=== PATIENT | female | born 1955 | race Caucasian/White ===

== ENCOUNTER → 2017-07-20 | Outpatient (CLI) | payer BC ==
--- NOTE | 2017-07-20 13:15 | BD ---
EXAMINATION TYPE: Axial Bone Density DATE OF EXAM: 07/20/2017 COMPARISON: 03/12/2015 CLINICAL HISTORY: Osteoporosis screening. Postmenopausal female. Height: 62.2 IN Weight: 109 LBS RISK FACTORS HISTORY OF: History of Wrist Fracture: YES LEFT When: AGE 44 Surgery to Hip(right): YES When: AGE 61 Family History of Osteoporosis: MOTHER, (M)GRANDMOTHER, COUSINS Active: YES Diet low in dairy products/other sources of calcium: YES Postmenopausal woman: AGE 51 MEDICATIONS: Osteoporosis Medications: YES Which medication: Prolia BONIVA How Lon YEARS Additional Medications: VIT D, CYMBALTA, SIMVASTATIN, RESTASIS,PROLIA EXAM MEASUREMENTS: Bone mineral densitometry was performed using the [employer] System. Bone mineral density as measured about the Lumbar spine is: ----- L1-L4(G/cm2): 1.240 T Score Values are as follows: ----- L2: -1.0 ----- L3: 2.4 ----- L4: 1.5 ----- L1-L4: 0.5 Bone mineral density has: Increased 11.8% since study of: 03/12/2015 PT HAD RIGHT HIP REPLACEMENT AGE 61 Bone mineral density about the L hip (g/cm2): 0.854 T Score values are as follows: -----L Neck: -1.3 -----L Total: -1.0 Bone mineral density has: Increased 1.6% since study of: 03/12/2015 IMPRESSION: Osteopenia (T Score between -2.5 and -1). There is slightly increased risk of fracture and the patient may be considered for treatment. Re-Screen 2-5 years. NOTE: T-SCORE=SD OF THE YOUNG ADULT MEAN.
--- NOTE | 2017-07-20 13:40 | MM ---
Reason for exam: screening (asymptomatic). Last mammogram was performed 1 year and 7 months ago. History: Patient is postmenopausal and is nulliparous. Family history of breast cancer in maternal grandmother. Physical Findings: A clinical breast exam by your physician is recommended on an annual basis and results should be correlated with mammographic findings. MG Screening Mammo w CAD Bilateral CC and MLO view(s) were taken. Prior study comparison: December 25, 2015, bilateral MG screening mammo w CAD. December 19, 2012, bilateral digital screening mammo w/CAD. The breast tissue is extremely dense which could obscure a lesion on mammography. No suspicious abnormality. No significant changes when compared with prior studies. ASSESSMENT: Negative, BI-RAD 1 RECOMMENDATION: Routine screening mammogram of both breasts in 1 year.
== END | disposition home or self-care (01) ==
LOC: RADMAMWWP 09:43
PROVIDERS: ATTEND Internal Medicine Geriatric Medicine
DX: Z12.31 Encounter for screening mammogram for malignant neoplasm of breast (principal); M85.80 Other specified disorders of bone density and structure, unspecified site
CPT/HCPCS: 77067; 77080

== ENCOUNTER → 2018-12-30 | Outpatient (CLI) | payer BC ==
--- NOTE | 2019-01-01 14:25 | MM ---
Reason for exam: screening (asymptomatic). Last mammogram was performed 1 year and 5 months ago. History: Patient is postmenopausal and is nulliparous. Family history of breast cancer in maternal grandmother. Physical Findings: A clinical breast exam by your physician is recommended on an annual basis and results should be correlated with mammographic findings. MG 3D Screening Mammo W/Cad Bilateral CC and MLO view(s) were taken. Prior study comparison: July 20, 2017, bilateral MG screening mammo w CAD. December 25, 2015, bilateral MG screening mammo w CAD. The breast tissue is heterogeneously dense. This may lower the sensitivity of mammography. There is no discrete abnormality. No significant changes when compared with prior studies. ASSESSMENT: Negative, BI-RAD 1 RECOMMENDATION: Routine screening mammogram of both breasts in 1 year.
== END | disposition home or self-care (01) ==
LOC: RADMAMWWP 09:03
PROVIDERS: ATTEND Obstetrics & Gynecology
DX: Z12.31 Encounter for screening mammogram for malignant neoplasm of breast (principal)
CPT/HCPCS: 77063; 77067

== ENCOUNTER → 2019-07-20 | Outpatient (CLI) | payer MEDICARE | END | disposition home or self-care (01) | DX: Z53.9 Procedure and treatment not carried out, unspecified reason (principal) ==

== ENCOUNTER → 2019-07-20 | Outpatient (CLI) | payer MEDICARE ==
--- NOTE | 2019-07-20 15:27 | US ---
EXAMINATION TYPE: US pelvic complete DATE OF EXAM: 07/20/2019 COMPARISON: NONE CLINICAL HISTORY: 64-year-old female R10.2 PELVIC PAIN. Patient states she felt right pelvic pain dur ing a pelvic exam at her doctor's office 1 week ago, 1, 1, history of D&C. TECHNIQUE: Transabdominal sonographic images of the pelvis were acquired. Transvaginal sonographic i mages were medically necessary to better assess the following anatomy: endometrium and ovaries Date of LMP: 13 years ago FINDINGS: EXAM MEASUREMENTS: Uterus: 5.9 x 3.4 x 3.9 cm Endometrial Stripe: A portion of the fundus may measure up to 9 mm. Right Ovary: not seen Left Ovary: not seen 1. Uterus: 2.8 x 1.7 x 3.1cm isoechoic heterogeneous vascular area along the posterior margin of the endometrial stripe, possible endometrial mass vs. Myometrial mass distorting endometrium 2. Endometrium: limited visualization, may measure up to 9 mm. 3. Right Ovary: not seen due to overlying bowel 4. Left Ovary: not seen due to overlying bowel 5. Bilateral Adnexa: wnl 6. Posterior cul-de-sac: wnl IMPRESSION: 1. Possible endometrial or adjacent posterior myometrial mass measuring 2.8 cm difficult to exclude b ased on these images. Female pelvic MRI recommended to further evaluate. 2. Neither ovary could be visualized.
[2019-07-20 23:36] LABS: Gliadin AB IgA, Deaminated NEGATIVE (NEGATIVE); Gliadin AB IgA, Unit 0.9 U/mL; Gliadin AB IgG, Deaminated NEGATIVE (NEGATIVE)
== END | disposition home or self-care (01) ==
LOC: LABWHC1 14:19
PROVIDERS: ATTEND Internal Medicine Gastroenterology
DX: R63.4 Abnormal weight loss (principal)
CPT/HCPCS: 36415; 76830; 76856; 83516

== ENCOUNTER → 2019-07-25 | Outpatient (CLI) | payer MEDICARE ==
[2019-07-25 14:16] LABS: African American GFR (CKD) >90 (>60 ml/min/1.73 sqM); Blood Urea Nitrogen 13 mg/dL (7-17); Non-African American GFR(CKD) >90 (>60 ml/min/1.73 sqM)
--- NOTE | 2019-07-25 15:45 | CT ---
EXAMINATION TYPE: CT abdomen pelvis w con DATE OF EXAM: 07/25/2019 HISTORY: weight loss, abnormal US of the uterus CT DLP: 287.4mGycm Automated Exposure Control for Dose Reduction was Utilized. CONTRAST: CT scan of the abdomen and pelvis is performed with IV Contrast, patient injected with 100 mL of Isov ue 300. COMPARISON: None. FINDINGS: LUNG BASES: No significant abnormality is appreciated. LIVER/GB: Subcentimeter hypodense lesion right hepatic dome too small to further characterize axial i mage 10 presumed benign. PANCREAS: No significant abnormality is seen. SPLEEN: No significant abnormality is seen. ADRENALS: No significant abnormality is seen. KIDNEYS: No significant abnormality is seen. BOWEL: Suboptimal evaluation as patient has virtually no intra-abdominal fat and the oral contrast do es not reach the level of terminal ileum. Moderate diffuse colonic fecal prominence. Bowel loops pres acral region of uncertain etiology likely reflects wandering cecum seen best coronal image 49. No ramon picious small or large bowel dilatation. UTERUS/ADNEXA: No gross abnormality seen. LYMPH NODES: No greater than 1cm abdominal or pelvic lymph nodes are appreciated. OSSEOUS STRUCTURES: Metallic hardware from right hip arthroplasty causes streak artifact limiting mega luation of pelvic structures. Underlying levoconvex scoliosis centered at L4-L5 level. [id number] morales disc space narrowing L4-L5 level. Facet arthropathy lower lumbar levels. OTHER: No significant additional abnormality is seen. IMPRESSION: Suboptimal study due to virtually no intra-abdominal fat. Fairly moderate to severe diffu se colonic fecal stasis. No bowel obstruction. Wandering cecum suspected.
== END | disposition home or self-care (01) ==
LOC: RADCTMAIN 13:07
PROVIDERS: ATTEND Internal Medicine Gastroenterology
DX: K90.9 Intestinal malabsorption, unspecified (principal); Z01.89 Encounter for other specified special examinations
CPT/HCPCS: 82565; 84520; 74177; 36415; Q9967

== ENCOUNTER → 2019-08-21 | Outpatient (CLI) | payer MEDICARE ==
--- NOTE | 2019-08-22 02:55 | MR ---
EXAMINATION TYPE: MR pelvis wo/w con DATE OF EXAM: 08/21/2019 COMPARISON: HISTORY: Uterine Mass CONTRAST: Standard multiplanar, multisequence MRI departmental protocol utilizing 4 mL intravenous Gadavist elsa olinium contrast. Uterus is retroverted and best seen on the T1 sagittal fat sat contrast images 22. Endometrium measur es 5 mm. Uterus measures 3.5 x 2.5 cm. Adjacent to the uterine fundus there is a rounded mixed signal mass extending to the right side. This measures 3.7 cm and shows enhancement. There is fluid in the pelvis that appears to be within multiple distended loops of bowel. The bladder distends smoothly. Th ere is metal artifact from right hip prosthesis. IMPRESSION: Small retroverted uterus with normal endometrium. Rounded mass contiguous with the uterine fundus on the right side shows enhancement. The appearances nonspecific. I would consider uterine fibroid as we ll as pathologically enlarged right ovary.
== END | disposition home or self-care (01) ==
LOC: RADMRIMAIN 18:36
PROVIDERS: ATTEND Obstetrics & Gynecology
DX: N85.4 Malposition of uterus (principal); N85.8 Other specified noninflammatory disorders of uterus
CPT/HCPCS: 72197; A9585

== ENCOUNTER → 2019-09-14 | Outpatient (CLI) | payer MEDICARE ==
--- NOTE | 2019-09-14 14:20 | XR ---
EXAMINATION TYPE: XR chest 2V DATE OF EXAM: 09/14/2019 COMPARISON: NONE TECHNIQUE: PA and lateral views submitted. HISTORY: Preop FINDINGS: The lungs are clear and there is no pneumothorax, pleural effusion, or focal pneumonia. Heart size normal. No overt failure. Postsurgical change left shoulder. Hyperinflation suggests COPD. IMPRESSION: 1. No acute process.
== END | disposition home or self-care (01) ==
LOC: RADXRMAIN 13:52
PROVIDERS: ATTEND Obstetrics & Gynecology
DX: R19.00 Intra-abdominal and pelvic swelling, mass and lump, unspecified site (principal)
CPT/HCPCS: 71046

== ENCOUNTER → 2020-01-15 | Outpatient (CLI) | payer MEDICARE | END | disposition home or self-care (01) | LOC: LABWHC1 14:06 | PROVIDERS: ATTEND Nurse Practitioner Family | DX: K59.00 Constipation, unspecified (principal); R63.4 Abnormal weight loss; R19.00 Intra-abdominal and pelvic swelling, mass and lump, unspecified site; R41.3 Other amnesia; Z77.018 Contact with and (suspected) exposure to other hazardous metals; Z77.098 Contact with and (suspected) exposure to other hazardous, chiefly nonmedicinal, chemicals; Z77.120 Contact with and (suspected) exposure to mold (toxic) | CPT/HCPCS: 36415; 86160 ==

== ENCOUNTER → 2020-01-18 | Outpatient (CLI) | payer MEDICARE | END | disposition home or self-care (01) | LOC: LABWHC1 11:14 | PROVIDERS: ATTEND Nurse Practitioner Family | DX: K59.00 Constipation, unspecified (principal); R14.0 Abdominal distension (gaseous); R41.3 Other amnesia; Z77.018 Contact with and (suspected) exposure to other hazardous metals; Z77.098 Contact with and (suspected) exposure to other hazardous, chiefly nonmedicinal, chemicals; R63.4 Abnormal weight loss | CPT/HCPCS: 36415; 83704 ==

== ENCOUNTER → 2020-02-27 | Outpatient (CLI) | payer MEDICARE ==
--- NOTE | 2020-02-27 15:15 | BD ---
EXAMINATION TYPE: Axial Bone Density DATE OF EXAM: 02/27/2020 COMPARISON: 07.20.2017 CLINICAL HISTORY: 64 YR OLD FEMALE....ICD-10 CODE: M89.9 DISORDER OF BONE Height: 62 Weight: 90 FRAX RISK QUESTIONS: Family History (Parent hip fracture): YES History of Fracture in Adulthood: YES Secondary Osteoporosis: YES 4. Malnutrition: UNDERWEIGHT RISK FACTORS HISTORY OF: Spine Fracture: NO, ONLY PAIN INSERT History of Wrist Fracture: LT WRIST Surgery to TOTAL HIP RT SIDE 2017, CHEMO PAIN INSERT IN LUMBAR SPINE 1984 Family History of Osteoporosis: YES, MOTHER AND GRANDMOTHER WITH HIP FXS Diet low in dairy products/other sources of calcium: YES Postmenopausal woman: YES, AT AGE 51 Hyperparathyroidism: NO Adrenal Insufficiency: YES, ADRENAL STRESS, HIGH CORTISOL LEVEL MEDICATIONS: Osteoporosis Medications: PROLIA X2 YEARLY....8-10 YRS, OSTEOPOROSIS MEDS FOR OVER 20 YRS Additional Medications: DULOXETINE, STATIN FOR CHOLESTEROL, VIT D, K FORCE, MULTIVITAMIN Additional History: ADRENAL INSUFFICIENCY, CHOLESTEROL EXAM MEASUREMENTS: Bone mineral densitometry was performed using the [employer] System. Bone mineral density as measured about the Lumbar spine is: ----- L1-L4(G/cm2): 1.229 T Score Values are as follows: ----- L1: -2.4 ----- L2: -1.8 ----- L3: 0.9 ----- L4: 4.9 ----- L1-L4: 0.4 Bone mineral density has: Increased 3.1% SINCE: 07.20.2017 Bone mineral density about the L hip (g/cm2): 0.948 T Score values are as follows: -----L Neck: -0.9 -----L Total: -0.5 Bone mineral density has: Increased 7.1 % SINCE 07.20.2017 FRAX%s: THERE IS A 19.1% CHANCE FOR A MAJOR OSTEOPOROTIC FX AND 1.0% FOR HIP......PROBABILITY FOR FX IN 10 YRS TIME IMPRESSION: Normal (Values between +1 and -1 indicate normal bone mass). Consider repeating this study in 5 year s or sooner if there is some new clinical indication. NOTE: T-SCORE=SD OF THE YOUNG ADULT MEAN.
== END | disposition home or self-care (01) ==
LOC: RADBDWWP 13:15
PROVIDERS: ATTEND Obstetrics & Gynecology
DX: M85.9 Disorder of bone density and structure, unspecified (principal)
CPT/HCPCS: 77080

== ENCOUNTER → 2022-04-30 | Outpatient (CLI) | payer MEDICARE ==
--- NOTE | 2022-04-30 16:00 | BD ---
EXAMINATION TYPE: Axial Bone Density DATE OF EXAM: 04/30/2022 CLINICAL HISTORY: 67 years old Female. ICD-10 CODE: M81.0 AGE RELATED OSTEOPOROSIS Height: 62in Weight: 88lb FRAX RISK QUESTIONS: History of Fracture in Adulthood: yes Secondary Osteoporosis: RISK FACTORS HISTORY OF: Surgery to Spine/Hip(right/left)/Wrist (right/left): yes, RTHA When: 2017 Family History of Osteoporosis: Active: Diet low in dairy products/other sources of calcium: YES Postmenopausal woman: YES Poor Health: fair Adrenal Insufficiency: unknown MEDICATIONS: Osteoporosis Medications: Which medication: Prolia How Lon-15 years Additional Medications: cholesterol med, vitamin d Additional History: EXAM MEASUREMENTS: Bone mineral densitometry was performed using the [employer] System. Bone mineral density as measured about the Lumbar spine is: ----- L1-L4(G/cm2): 1.404 T Score Values are as follows: ----- L1: -1.6 ----- L2: 0.9 ----- L3: 5.4 ----- L4: 2.3 ----- L1-L4: 1.9 Z Score Values are as follows: ----- L1: 0.9 ----- L2: 3.4 ----- L3: 7.9 ----- L4: 4.8 ----- L1-L4: 4.3 Bone mineral density has: Increased 14.2% since study of: 02-27-20 Bone mineral density about the L hip (g/cm2): 0.889 T Score values are as follows: -----L Neck: -0.8 -----L Total: -0.9 Z Score values are as follows: -----L Neck: 1.4 -----L Total: 1.0 Bone mineral density has: Decreased -6.2% since study of: 02-27-20 FRAX%s: The graph provided illustrates a 17.1% chance for a major osteoporotic fx and a 1.4% chance f or the hips probability for fx in 10 years time. IMPRESSION: Normal (Values between +1 and -1 indicate normal bone mass). Consider repeating this study in 5 year s or sooner if there is some new clinical indication. NOTE: T-SCORE=SD OF THE YOUNG ADULT MEAN.
--- NOTE | 2022-05-03 08:00 | MM ---
Reason for Exam: Screening (asymptomatic). Last mammogram was performed 3 year(s) and 4 month(s) ago. Patient History: Menarche at age 13. Patient has no children. Postmenopausal. Maternal grandmother had breast cancer. Risk Values: Muna 5 year model risk: 1.7%. NCI Lifetime model risk: 5.6%. Prior Study Comparison: 12/25/2015 Bilateral Screening Mammogram, [facility]. 07/20/2017 Bilateral Screening Mammogram, [facility]. 12/30/2018 Bilateral Screening Mammogram, [facility]. Tissue Density: The breast tissue is extremely dense which could obscure a lesion on mammography. Findings: Analyzed By CAD. Asymmetric nodular density 12:00 position right breast 3 cm from the nipple. Additional asymmetric nodular density lower right breast. Additional views are recommended. If nodularity persists consider ultrasound as well. Overall Assessment: Incomplete: need additional imaging evaluation, BI-RAD 0 Management: Diagnostic Mammogram of the right breast. A clinical breast exam by your physician is recommended on an annual basis and results should be correlated with mammographic findings. Electronically signed and approved by: Odell Pierre M.D. Radiologis
== END | disposition home or self-care (01) ==
LOC: RADMAMWWP 15:07
PROVIDERS: ATTEND Internal Medicine Geriatric Medicine
DX: Z12.31 Encounter for screening mammogram for malignant neoplasm of breast (principal); M81.0 Age-related osteoporosis without current pathological fracture; M85.88 Other specified disorders of bone density and structure, other site; Z78.0 Asymptomatic menopausal state; Z80.3 Family history of malignant neoplasm of breast
CPT/HCPCS: 77063; 77067; 77080

== ENCOUNTER → 2022-05-05 | Outpatient (CLI) | payer MEDICARE ==
--- NOTE | 2022-05-05 14:15 | MM ---
Reason for Exam: Additional evaluation requested from abnormal screening. Last screening mammogram was performed less than 1 month ago. Patient History: Menarche at age 13. Patient has no children. Postmenopausal. Maternal grandmother had breast cancer. Risk Values: Muna 5 year model risk: 1.7%. NCI Lifetime model risk: 5.6%. Prior Study Comparison: 12/19/2012 Bilateral Screening Mammogram, [facility]. 12/25/2015 Bilateral Screening Mammogram, [facility]. 07/20/2017 Bilateral Screening Mammogram, [facility]. 12/30/2018 Bilateral Screening Mammogram, [facility]. 04/30/2022 Bilateral MG 3D screening mammo w/cad, [facility]. Tissue Density: Right: The breast tissue is extremely dense which could obscure a lesion on mammography. Findings: Analyzed By CAD. No persistent distortion or focal asymmetry No suspicious groups of microcalcifications, spiculated or lobular masses, architectural distortion or other secondary signs of malignancy are mammographically apparent. Overall Assessment: Probably benign, BI-RAD 3 Management: Diagnostic Mammogram of the right breast in 6 months. A negative mammogram report should not preclude additional follow up of suspicious palpable abnormalities. Patient should continue monthly self breast exam. A clinical breast exam by your physician is recommended on an annual basis and results should be correlated with mammographic findings. Electronically signed and approved by: Travis Hutson D.O. Radiologis
== END | disposition home or self-care (01) ==
LOC: RADMAMWWP 13:14
PROVIDERS: ATTEND Internal Medicine Geriatric Medicine
DX: R92.8 Other abnormal and inconclusive findings on diagnostic imaging of breast (principal); Z80.3 Family history of malignant neoplasm of breast; Z78.0 Asymptomatic menopausal state
CPT/HCPCS: 77065; G0279; 77061

== ENCOUNTER → 2022-12-16 | Outpatient (CLI) | payer MEDICARE ==
--- NOTE | 2022-12-16 17:02 | US ---
EXAMINATION TYPE: US pelvic complete DATE OF EXAM: 12/16/2022 COMPARISON: OB ultrasound 07/20/2019, MR pelvis 08/21/2019 CLINICAL INDICATION: Female, 67 years old with history of D25.9 LEIOMYOMA OF UTERUS, UNSPECIFIED; fib roid TECHNIQUE: Transvaginal (TV) and Transabdominal (TA) . Transabdominal sonographic images of the pel vis were acquired. Transvaginal sonographic images were medically necessary to better assess the fol lowing anatomy: Ovaries Date of LMP: 16 years ago EXAM MEASUREMENTS: Uterus: 4.0x3.1x3.4 cm Endometrial Stripe: 0.2 cm Right Ovary: 1.7x0.6x1.2 cm Left Ovary: 1.0x1.1x0.7 cm 1. Uterus: Anteverted fibroid again seen: 2.5x1.4x2.5cm 2. Endometrium: free fluid noted 3. Right Ovary: wnl, atrophic 4. Left Ovary: wnl, atrophic 5. Bilateral Adnexa: Obscured by overlying bowel gas 6. Posterior cul-de-sac: wnl exam largely limited by bowel gas and patient anatomy Anteverted uterus with intramural posterior fundal fibroid again identified. Small amount of free flu id within the endometrium. Both ovaries are atrophic. IMPRESSION: Limited examination due to overlying bowel gas and patient anatomy. 1. No ultrasound evidence for acute process. 2. Stable fibroid changes of the uterus. 3. Simple appearing fluid within the endometrium. 4. Atrophic appearance of both ovaries.
== END | disposition home or self-care (01) ==
LOC: RADUSWWP 15:57
PROVIDERS: ATTEND Obstetrics & Gynecology
DX: D25.1 Intramural leiomyoma of uterus (principal); N83.311 Acquired atrophy of right ovary; N83.312 Acquired atrophy of left ovary
CPT/HCPCS: 76830; 76856

== ENCOUNTER → 2022-12-23 | Outpatient (CLI) | payer MEDICARE ==
--- NOTE | 2022-12-23 08:45 | MM ---
Reason for Exam: Follow-up at short interval from prior study. Last screening mammogram was performed 8 month(s) ago. Patient History: Menarche at age 13. Patient has no children. Postmenopausal. Maternal grandmother had breast cancer. Risk Values: Muna 5 year model risk: 1.7%. NCI Lifetime model risk: 5.6%. Prior Study Comparison: 12/25/2015 Bilateral Screening Mammogram, [facility]. 07/20/2017 Bilateral Screening Mammogram, [facility]. 12/30/2018 Bilateral Screening Mammogram, [facility]. 04/30/2022 Bilateral MG 3D screening mammo w/cad, [facility]. 05/05/2022 Right MG 3D work up w/cad RT, [facility]. Tissue Density: Right: The breast tissue is extremely dense which could obscure a lesion on mammography. Findings: Analyzed By CAD. Under compression the suspicious densities identified by screening are not persistent. With these new images, a group of calcifications are identified. Magnification views confirm calcifications at the 12 to 1:00 position right breast. These appear new from prior exams. These appear grouped, stereotactic core biopsy recommended. Overall Assessment: Suspicious, BI-RAD 4 Management: Stereotactic Core Biopsy of the right breast. A negative mammogram report should not preclude additional follow up of suspicious palpable abnormalities. Patient should continue monthly self breast exam. A clinical breast exam by your physician is recommended on an annual basis and results should be correlated with mammographic findings. Electronically signed and approved by: Travis Hutson D.O. Radiologis
== END | disposition home or self-care (01) ==
LOC: RADMAMWWP 07:51
PROVIDERS: ATTEND Obstetrics & Gynecology
DX: R92.341 Mammographic extreme density, right breast (principal); R92.8 Other abnormal and inconclusive findings on diagnostic imaging of breast; Z78.0 Asymptomatic menopausal state; Z80.3 Family history of malignant neoplasm of breast
CPT/HCPCS: 77065; G0279; 77061

== ENCOUNTER → 2023-01-07 | Day surgery (SDC) | payer MEDICARE ==
--- NOTE | 2023-01-10 11:30 | MM ---
Date of Procedure: 01/07/23 Preoperative Diagnosis: Microcalcifications of concern right breast Postoperative Diagnosis: Same Procedure(s) Performed: Right breast stereotactic core biopsy Anesthesia: local Surgeon: Masha Srivastava Pathology: other (Right breast tissue with microcalcifications of concern noted in specimen) Condition: stable Disposition: same day (Right breast tissue with microcalcifications of concern noted and specimen) Indications for Procedure: Microcalcifications of concern right breast Operative Findings: Radiographic specimen reveals microcalcifications of concern Description of Procedure: The patient is a 67-year-old female who was noted to have microcalcifications of concern in her right breast. A stereotactic core biopsy was recommended. The risks and benefits of the procedure were discussed with the patient and she wished to proceed. The patient was taken to the stereotactic core biopsy room. She was positioned in an upright chair. A manager pe film was obtained. A CC from above approach was utilized. The area of concern was identified. The area was targeted. A 2-D stereo approach was utilized. The breast was prepped. 16 mL of 1% lidocaine was used to anesthetize the area of concern. A 9-gauge vacuum-assisted core rotating biopsy needle was driven to the correct coordinates. A prefire film was obtained. Secondary to the thinness of the breast the needle was withdrawn from the breast and fired. It was then driven again into the breast parenchyma to the target. A post-fire radiograph was obtained. The needle was noted to be in the correct location. 13 core biopsy specimens were obtained. Radiograph of the specimen revealed the calcifications of concern have been adequately sampled. A secure marked top. Clip was placed. The patient tolerated the procedure in stable condition. The patient will follow-up with Dr. Barrios next week. The specimen was sent to pathology. [facility]
== END ==
LOC: RADMAMWWP 07:18
PROVIDERS: ATTEND Surgery
DX: R92.0 Mammographic microcalcification found on diagnostic imaging of breast (principal); R92.8 Other abnormal and inconclusive findings on diagnostic imaging of breast
CPT/HCPCS: 88305; 19081; A4648

== ENCOUNTER → 2023-01-07 | Outpatient (CLI) | payer MEDICARE ==
[2023-01-07 08:03] VITALS: BP 114/76; PULSE 86; RESP 18; TEMP 97.9
--- NOTE | 2023-01-07 08:04 | P.GSHP ---
History of Present Illness H&P Date: 01/07/23 Chief Complaint: Abnormal right breast mammogram Micki is a 67-year-old white female seen in consultation for Dr. Joseph regarding an abnormal right breast mammogram. [place] [id number] after which it was recommended she have a diagnostic mammogram of the [place]. [place] [id number]. It was recommended she have a repeat right breast mammogram in 6 months, which was performed on [id number]. This revealed a group of calcifications at the 12:00 to 1 o'clock position of the right breast. These were considered new and stereotactic core biopsy was recommended. She is not complaining of any lumps masses or nodules of concern in either breast. She hasn't had any recent trauma or infection in the breast. She has not had any surgery in her breast. Caffeine: 3 cups/day nicotine: none chocolate: several times a week BCP:6 months when a teen ages hormones: none Family history: maternal grandmother: breast cancer father: colon cancer paternal grandfather: colon cancer brother: adrenal cancer Hormonal history: Menarche: 13 G1A1 menopause: 51 Surgical history: shoulder: bilateral not replacement arthrscopic bilateral knees thumb joint replacement Medical history: depression high cholesterol Social History: nicotine: none alcohol: weekly drugs: none - Constitutional Constitutional: Denies chills, Denies fever - EENT Eyes: denies blurred vision, denies pain Ears: bilateral: tinnitus, deny: decreased hearing Ears, nose, mouth and throat: Denies headache, Denies sore throat - Breasts Breasts: bilateral: as per HPI - Cardiovascular Cardiovascular: Denies chest pain, Denies shortness of breath - Respiratory Respiratory: Denies cough, Denies 7 - Gastrointestinal Gastrointestinal: Reports constipation, Denies abdominal pain, Denies diarrhea, Denies nausea, Denies vomiting - Genitourinary (Female) Genitourinary: Denies dysuria, Denies hematuria - Menstruation Menstruation: Reports postmenopausal - Musculoskeletal Musculoskeletal: Reports as per HPI - Integumentary Integumentary: Denies pruritus, Denies rash - Neurological Neurological: Denies numbness, Denies weakness - Psychiatric Psychiatric: Reports depression - Endocrine Endocrine: Denies fatigue, Denies weight change - Hematologic/Lymphatic Comment: none - Allergic/Immunologic Allergic/Immunologic: Reports seasonal allergies Past Medical History Past Medical History: GERD/Reflux, Hyperlipidemia, Osteoarthritis (OA) Additional Past Medical History / Comment(s): ARTHRITIS/BACK PAIN/OSTEOPOROSIS History of Any Multi-Drug Resistant Organisms: None Reported Past Surgical History: Back Surgery Additional Past Surgical History / Comment(s): ARTHROSCOPIC RT X2 SHOULDER AND BILAT KNEE/LT SHOULDER SURG/RT WRIST LIGAMENT REPAIR Past Anesthesia/Blood Transfusion Reactions: No Reported Reaction, Motion Sickness Past Psychological History: Depression Additional Psychological History / Comment(s): PREMENSTRAL DYSPHORIC D/O Smoking Status: Former smoker Past Alcohol Use History: Occasional Additional Past Alcohol Use History / Comment(s): quit smoking 35 years Past Drug Use History: None Reported Medications and Allergies Home Medications Medication Instructions Recorded Confirmed Type cycloSPORINE 0.05% OPHTH SOLN 1 applicator BOTH EYES BID 06/06/13 12/27/22 History [Restasis 0.05% Ophth Soln] DULoxetine HCL [Cymbalta] 90 mg PO DAILY 07/13/13 12/27/22 History Memantine HCl [Memantine HCl ER] 14 mg PO DAILY 12/27/22 12/27/22 History Rosuvastatin [Crestor] 20 mg PO HS 12/27/22 12/27/22 History lamoTRIgine [LaMICtal] 100 mg PO DAILY 12/27/22 12/27/22 History Allergies Allergy/AdvReac Type Severity Reaction Status Date / Time hydrocodone Allergy Rash/Hives Verified 12/27/22 13:16 Surgical - Exam - General no distress - Eyes normal ocular movement - Neck trachea midline - Respiratory normal respiratory effort, clear to auscultation - Cardiovascular Heart Sounds: normal: S1, S2 - Abdomen Abdomen: soft, non tender, no guarding, no rigid, no rebound - Integumentary normal turgor - Neurologic no disoriented, no combative - Musculoskeletal normal gait - Psychiatric oriented to time, oriented to person, oriented to place, speech is normal, memory intact Breast Exam: BRA; 34B Inspection: bilateral grade 2 ptosis palpation: Right breast: Multi-positional exam no dominant masses or nodules of concern, thin breast Right axilla: No adenopathy of concern Left breast: Multi-positional exam no dominant masses or nodules of concern, then the breast Left axilla: No adenopathy of concern Results Mammogram reviewed with Dr. Morgan, microcalcifications of concern right breast upper mid breast Assessment and Plan Assessment: Impression: Radiographic abnormality/microcalcifications of concern right breast upper outer to mid breast Depression Plan: Stereotactic core biopsy right breast Risks and benefits of the procedure were discussed with the patient. Risks include but are not limited to bleeding, infection, reaction to the anesthetic. The patient understands that if the specimen pathology were discordant and further tissue acquisition may be necessary. The patient also understands that her breast) and may not be able to do a stereo biopsy in which case a needle localization and excisional most likely be recommended. She wishes to proceed. CC: Dr. Joseph
--- NOTE | 2023-01-07 08:45 | P.PCN ---
Date of Procedure: 01/07/23 Preoperative Diagnosis: Microcalcifications of concern right breast Postoperative Diagnosis: Same Procedure(s) Performed: Right breast stereotactic core biopsy Anesthesia: local Surgeon: Masha Srivastava Pathology: other (Right breast tissue with microcalcifications of concern noted in specimen) Condition: stable Disposition: same day (Right breast tissue with microcalcifications of concern noted and specimen) Indications for Procedure: Microcalcifications of concern right breast Operative Findings: Radiographic specimen reveals microcalcifications of concern Description of Procedure: The patient is a 67-year-old female who was noted to have microcalcifications of concern in her right breast. A stereotactic core biopsy was recommended. The risks and benefits of the procedure were discussed with the patient and she wished to proceed. The patient was taken to the stereotactic core biopsy room. She was positioned in an upright chair. A senior electronics engineer film was obtained. A CC from above approach was utilized. The area of concern was identified. The area was targeted. A 2-D stereo approach was utilized. The breast was prepped. 16 mL of 1% lidocaine was used to anesthetize the area of concern. A 9-gauge vacuum-assisted core rotating biopsy needle was driven to the correct coordinates. A prefire film was obtained. Secondary to the thinness of the breast the needle was withdrawn from the breast and fired. It was then driven again into the breast parenchyma to the target. A post-fire radiograph was obtained. The needle was noted to be in the correct location. 13 core biopsy specimens were obtained. Radiograph of the specimen revealed the calcifications of concern have been adequately sampled. A secure marked top. Clip was placed. The patient tolerated the procedure in stable condition. The patient will follow-up with Dr. Barrios next week. The specimen was sent to pathology.
== END ==
LOC: WWCWWP 07:35
PROVIDERS: ATTEND Surgery
DX: K21.9 Gastro-esophageal reflux disease without esophagitis (principal); E78.00 Pure hypercholesterolemia, unspecified; F32.A Depression, unspecified; M81.0 Age-related osteoporosis without current pathological fracture; M19.90 Unspecified osteoarthritis, unspecified site; Z80.3 Family history of malignant neoplasm of breast; Z87.891 Personal history of nicotine dependence; Z88.5 Allergy status to narcotic agent

== ENCOUNTER → 2023-01-19 | Outpatient (CLI) | payer MEDICARE ==
--- NOTE | 2023-01-19 15:04 | P.PN ---
Subjective Progress Note Date: 01/19/23 Principal diagnosis: fibrocystic breast Micki is a 67 year old female status post stero biopsy of a lesion in her right breast on 01-07-23. Her pathology was benign concordant. The patient did develop ecchymosis following the procedure. This is resolving at the present ti me. Objective - Integumentary Integumentary Comment(s): Ecchymosis at biopsy site, this is resolving, no evidence of infection or he matoma Assessment and Plan Assessment: Impression: benign concordant biopsy Plan: Repeat right breast mammogram in 6 months with examination at that time CC: Dr. Joseph
== END ==
LOC: WWCWWP 14:13
PROVIDERS: ATTEND Surgery
DX: N60.11 Diffuse cystic mastopathy of right breast (principal); R58 Hemorrhage, not elsewhere classified; Z88.5 Allergy status to narcotic agent; Z87.891 Personal history of nicotine dependence

== ENCOUNTER → 2023-07-11 | Outpatient (CLI) | payer MEDICARE ==
--- NOTE | 2023-07-11 15:20 | MM ---
Reason for Exam: Follow-up at short interval from prior study. Last mammogram was performed 1 year(s) and 3 month(s) ago. Patient History: Menarche at age 13. Patient has no children. Postmenopausal. 01/07/2023, Benign MG stereo VAD BX RT on the right side. Maternal grandmother had breast cancer. Risk Values: Muna 5 year model risk: 2.1%. NCI Lifetime model risk: 6.3%. Prior Study Comparison: 04/30/2022 Bilateral MG 3D screening mammo w/cad, [facility]. 05/05/2022 Right MG 3D work up w/cad RT, [facility]. 12/23/2022 Right MG 3D diag mammo w/cad RT, [facility]. Tissue Density: Right: The breasts are extremely dense, which lowers the sensitivity of mammography. Findings: Analyzed By CAD. Extensive bilateral areas of asymmetric density which appears to have fluctuated from prior. Further ultrasound evaluation of the right breast. Microclip right breast from recent biopsy 6 months ago. Overall Assessment: Incomplete: need additional imaging evaluation, BI-RAD 0 Management: Diagnostic Breast Ultrasound of the right breast. Electronically signed and approved by: Marie Dubon M.D. Radiologist
--- NOTE | 2023-07-11 16:09 | USB ---
Reason for Exam: Additional evaluation requested from prior study. Patient History: Menarche at age 13. Patient has no children. Postmenopausal. 01/07/2023, Benign MG stereo VAD BX RT on the right side. Maternal grandmother had breast cancer. Risk Values: Muna 5 year model risk: 2.1%. NCI Lifetime model risk: 6.3%. Technique: Method: Whole Breast Handheld. Prior Study Comparison: 04/30/2022 Bilateral MG 3D screening mammo w/cad, [facility]. 05/05/2022 Right MG 3D work up w/cad RT, [facility]. 12/23/2022 Right MG 3D diag mammo w/cad RT, [facility]. Findings: The whole breast of the right breast, the axilla of the right breast and the retroareolar of the right breast were scanned. A complete US of all four quadrants of the breast, axilla, and retro-areolar region were reviewed. No solid or cystic masses are identified. No axillary lymphadenopathy. Overall Assessment: Probably benign, BI-RAD 3 Management: Diagnostic Mammogram of both breasts in 6 months. A clinical breast exam by your physician is recommended on an annual basis and results should be correlated with mammographic findings. This exam should not preclude additional follow-up of suspicious palpable abnormalities. Results were given to the patient verbally at the time of exam. Electronically signed and approved by: Marie Dubon M.D. Radiologist
--- NOTE | 2023-07-12 08:50 | MM ---
Reason for Exam: Follow-up at short interval from prior study. Last mammogram was performed 1 year(s) and 3 month(s) ago. Patient History: Menarche at age 13. Patient has no children. Postmenopausal. 01/07/2023, Benign MG stereo VAD BX RT on the right side. Maternal grandmother had breast cancer. Risk Values: Muna 5 year model risk: 2.1%. NCI Lifetime model risk: 6.3%. Prior Study Comparison: 04/30/2022 Bilateral MG 3D screening mammo w/cad, [facility]. 05/05/2022 Right MG 3D work up w/cad RT, [facility]. 12/23/2022 Right MG 3D diag mammo w/cad RT, [facility]. Tissue Density: The breasts are extremely dense, which lowers the sensitivity of mammography. Findings: Analyzed By CAD. Extensive bilateral areas of asymmetric density which appears to have fluctuated from prior. Further ultrasound evaluation of the right breast. Microclip right breast from recent biopsy 6 months ago. Overall Assessment: Incomplete: need additional imaging evaluation, BI-RAD 0 Management: Diagnostic Breast Ultrasound of the right breast. Electronically signed and approved by: Marie Dubon M.D. Radiologist
== END | disposition home or self-care (01) ==
LOC: RADMAMWWP 13:31
PROVIDERS: ATTEND Surgery
DX: R92.343 Mammographic extreme density, bilateral breasts (principal); Z80.3 Family history of malignant neoplasm of breast; Z78.0 Asymptomatic menopausal state
CPT/HCPCS: 77066; 76641; G0279; 77061; 77062; 77065